=== PATIENT | male | born 1975 | race Caucasian/White ===

== ENCOUNTER 2016-12-12 20:13 | Emergency (ER) | payer SELFPAY ==
[2016-12-12 20:42] VITALS: BP 134/70
[2016-12-12] MEDS ORDERED: LORazepam 2 MG/ML DISP.SYRIN ONE (21:10)
[2016-12-12] MEDS ORDERED: diphenhydrAMINE HCL 50 MG/ML VIAL ONE ×2 (21:10→21:14)
[2016-12-12] MEDS ORDERED: HALOPERIDOL LACTATE 5 MG/ML VIAL ONE ×2 (21:10→21:14)
--- NOTE | 2016-12-12 21:16 | ERNOTE ---
Psychological HPI - Date Date of Service: 12/12/16 - General Chief Complaint: Psychiatric Problem Source: Reports: patient - Immun/Allergies/Home Medications Allergies/Adverse Reactions: Allergies hydrocodone Adverse Reaction (Verified 10/14/15 01:56) Itching Home Medications: HOME MEDICATIONS Loratadine [Claritin] 10 mg PO DAILY #30 tab 09/30/15 [Last Taken Unknown] - History of Present Illness Narrative: This is a 41-year-old male who comes to the emergency room brought by police. What I been able to get from the story comes through the nursing staff and EMS. I'm sorry from police. Apparently the police picked the patient up on a warrant, and when the patient was told he was going to be placed under arrest, he said that he needed to go to the emergency department because he hasn't been taking his medicines. The patient has some paranoid thoughts. He has varied diffuse nonspecific suicidal thoughts. No specific plan. No hoarding of medicines or anything else. Patient does not know the medicines he is supposed be taken When I go in to interview the patient, he refuses to talk with me. I informed him that if he will not talk to me that he needs to give me some information and if he doesn't do that he'll be released in the care of the police. The patient still refused to give any information. Time Seen by Provider: 12/12/16 20:50 Review of Systems - Narrative Narrative: This is a 41-year-old gentleman brought in by the police. He is limited initially belligerent and refusing to answer questions. Later he is sitting up in bed in no apparent distress - Review of Systems Constitutional: Present: no symptoms reported, See HPI EYE: Present: no symptoms reported ENT: Present: no symptoms reported Respiratory: Present: no symptoms reported Cardiology: Present: no symptoms reported Gastrointestinal/Abdominal: Present: no symptoms reported Genitourinary: Present: no symptoms reported Musculoskeletal: Present: no symptoms reported Skin: Present: no symptoms reported Neurological: Present: anxiety, depressed Endocrine: Present: no symptoms reported Hematologic/Lymphatic: Present: no symptoms reported Psych: Present: See HPI, anxiety, depressed, other - patient has vague suicidal ideation. No specific plan. He says that he sees things but cannot tell me what he sees other than "faces". The patient says he hears voices but they are saying things that she can understand this is been going on for years All Other Systems: All systems neg except as marked - Patient's Past Medical History Patient History - Medical: Anxiety, Depression, GERD, Migraines, Other Patient History - Cardiac/Respiratory: No pertinent hx Patient History - Cancer: No Hx of Cancer Patient History - Surgical Procedures: Back Surgery Patient History - Other: None - Family History Father Family History - Medical: No pertinent hx Mother Family History - Medical: No pertinent hx - Social History Living Situations: home Abuse History: No History of abuse Psych History: Psychiatric Hx, Hx of Anxiety, Hx of Depression Smoking Status: Current every day smoker Have you smoked in the past 12 months: Yes Do you dip or chew tobacco: No Alcohol Use: occasionally Drug Use: marijuana, meth - Immunizations Immunizations Up to Date: Yes Hx Pneumococcal Vaccination: No History of Influenza Vaccine: No Psychological Exam - Exam General Appearance: Present: wd/wn, alert, no apparent distress, other - sitting in bed in no apparent distress Head Exam: Present: normal inspection, no evidence of injury Neurological: Present: alert, 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 Absent: sinus pain/drainage - normal with the exception of horizontal nystagmus non- fatigable Neck: Present: normal inspection, nontender Respiratory: Present: no respiratory distress, normal breath sounds, no accessory muscle use, chest nontender, lungs clear Cardiovascular/Chest: Present: regular rate, rhythm, no murmur, normal peripheral pulses Gastrointestinal/Abdominal: Present: normal bowel sounds, nontender, nondistended, soft, no organomegaly Back Exam: Present: normal inspection, normal range of motion, no CVA tenderness , no vertebral tenderness Extremity Exam: Present: normal inspection, non-tender, normal range of motion, no edema Skin Exam: Present: normal color, warm/dry, no cyanosis Lymphatic Exam: Present: no adenopathy ED Progress - Vital Signs Vital Signs: Vital Signs 12/12/16 20:36 Temperature 36.4 C L Pulse Rate 76 Respiratory 14 Rate Blood Pressure 134/70 O2 Sat by Pulse 98 Oximetry - Progress/Reassessment Chief Complaint: Psychiatric Problem Plan - Plan Plan: This is a 41-year-old gentleman who is freely admits he was using methamphetamine. Officers and stopped in today tested white powdery substance that he had been tested as Pap salt. The patient admits to recent marijuana abuse. The patient says that he has a long history of psychiatric illnesses. He has vague suicidal ideation. He says "every day for the last 10 years or more I felt like hurting myself". He denies any specific plan. He has also very vague auditory and visual hallucinations. It should be noted that the patient only ended up in the emergency department because he was arrested by the police as a violation of previous [place]. When he was arrested he told the officers that he needed to go to the emergency room because he needed help. He was not on his way to the emergency room before this. When I asked him about using methamphetamine and its effects on his symptoms he says "yes but that the only thing that makes me feel better for any period of time". The patient says he's never been seen for substance abuse. The officers state that the patient has a [address]. He will likely be in prison for several weeks. The patient has no specific homicidal or suicidal ideation. He is not in imminent danger to himself. He describes very vague, hallucinations both auditory and visual. These are not classic hallucinations like one would expect with schizophrenia or psychosis. I have a concern as to whether or not he is simply telling me what he thinks will get him out of going to prison. Nevertheless, I think he can be safely watched in prison. The patient admits that he has not followed up with his doctors and gotten his medicines and still is engaging and substance abuse. If anything being in prison and being away from substances of abuse he may get better. When he is released from prison he will certainly need follow-up with a physician. I am asking him to return to the emergency department when he is released from prison so we can work on getting him into a treatment program. The patient verbalized understanding. I'm giving him some medicines to relax him this evening as he is a bit agitated. Departure Clinical Impression: Suicidal ideation, Drug-seeking behavior - Departure Disposition: [facility] Condition: Critical Additional Instructions: As we discussed, dog, there is no reason for me to force a few into treatment here in the emergency department. You are placed under arrest, and he will be watched in prison. I would encourage you, that very day you get out of prison, to return to the emergency room and be honest about the symptoms symptoms you're having. Be honest about the drug abuse. Do not abuse drugs when you're released from prison , come right to the emergency department. We can then work and getting U into a psychiatric treatment center substance abuse treatment center and getting U with a new family doctor. If you continue to use illegal drugs her symptoms will never ever get better as Return for new or worrisome symptoms
[2016-12-12] MEDS ORDERED: diphenhydrAMINE HCL 50 MG/ML VIAL IM ONE (21:23)
[2016-12-12] MEDS ORDERED: HALOPERIDOL LACTATE 5 MG/ML VIAL IM ONE (21:23)
[2016-12-12] MEDS ORDERED: LORazepam 2 MG/ML DISP.SYRIN IM ONE (21:23)
== END 2016-12-12 21:30 ==
LOC: ER 20:13
DX: R45.851 Suicidal ideations (principal); Z76.5 Malingerer [conscious simulation]; F17.200 Nicotine dependence, unspecified, uncomplicated